=== PATIENT | male | born 1930 | race Hispanic/Latino ===

== ENCOUNTER 2020-08-22 06:00 | Day surgery (SDC) | payer OTHER ==
[2020-08-20 10:35] VITALS: BP 169/85
[2020-08-20 11:13] LABS: BASOPHILS % (AUTO) 0.5 % (0.0-5.0); EOSINOPHILS % (AUTO) 7.4 % (0.0-8.0); LYMPHOCYTES % (AUTO) 23.2 % (21.0-51.0); MEAN CORPUSCULAR HEMOGLOBIN 31.8 pg (27.0-33.0); MEAN CORPUSCULAR HGB CONC 34.5 g/dL (32.0-36.0); MEAN CORPUSCULAR VOLUME 92.2 fL (79-99); MONOCYTES % (AUTO) 9.6 % (3.0-13.0); NEUTROPHILS % (AUTO) 59.1 % (40.0-77.0); PLATELET COUNT (AUTO) 272 K/uL (130-400); RED CELL DISTRIBUTION WIDTH 11.9 % (11.0-15.5); WHITE BLOOD COUNT (AUTO) 8.3 K/uL (4.8-10.8)
[2020-08-20 11:20] LABS: CREATININE 1.1 mg/dL (0.5-1.5)
[2020-08-20 11:39] LABS: INR 1.12 (0.85-1.15); PROTHROMBIN TIME 12.1 SEC (9.6-11.6)
[2020-08-20 11:40] LABS: PARTIAL THROMBOPLASTIN TIME 31.6 SEC (26.3-35.5)
[2020-08-22] VITALS (9 sets, daily range): BP systolic 120–141; BP diastolic 55–67
[~2020-08-22] VITALS: Ht 162.6 cm; Wt 95.4 kg
[~2020-08-22 06:00] MED LIST: AMIO200T6 PO; APIX5TAB PO; ASPI-1443 PO; CALC-1125 PO; FURO20TA4 PO; GLIM4TAB36 PO; GLUC-29 PO; LATA7.5D OU; LINA5TAB PO; LISI-809 PO; METF-444 PO; MULT-1367 PO; SIMV-46 PO
[2020-08-22] MEDS ORDERED: MIDAZOLAM HCL 1 MG/ML 2ML VIAL ONE (07:15)
[2020-08-22] MEDS ORDERED: HEPARIN 10,000 UNIT/10ML (1,000 UNIT/ML) VIAL ONE (07:15)
[2020-08-22] MEDS ORDERED: LIDOCAINE HCL 400MG/20ML VIAL ONE (07:15)
[2020-08-22] MEDS ORDERED: MEPERIDINE-PF 25 MG/ML SYG ONE (07:15)
[2020-08-22] MEDS ORDERED: 0.9%NACL 1000ML 1,000 ML IV SCH (08:00)
== END 2020-08-22 13:40 | disposition home or self-care (01) ==
LOC: DAH 06:00
PROVIDERS: ATTEND Internal Medicine Cardiovascular Disease
DX: I48.3 Typical atrial flutter (principal); I11.0 Hypertensive heart disease with heart failure; I50.22 Chronic systolic (congestive) heart failure; E78.5 Hyperlipidemia, unspecified; E11.9 Type 2 diabetes mellitus without complications; Z79.899 Other long term (current) drug therapy; Z79.01 Long term (current) use of anticoagulants
CPT/HCPCS: 36415; 80048; 82948; 85025; 85610; 85730; 93005; 93613; 93621; 93653; A4215; A4216; A4221; A4222; A4223 ×3; A4606; A4649 ×2; A4663; C1730; C1732; C1894 ×2; J1644 ×2; J2175; J2250; J3490; 99156; 99157